=== PATIENT | male | born 2000 | race Two or more races ===

== ENCOUNTER 2019-09-24 02:30 | Emergency (ER) | payer MEDICAID, OTHER ==
[~2019-09-24] VITALS: Ht 157.5 cm; Wt 58.5 kg
[2019-09-24 03:20] VITALS: BP 149/92
[2019-09-24] MEDS ORDERED: BACITRACIN TOP OINT 1 UD PKG TOP ONE ×2 (03:30→05:00)
[2019-09-24] MEDS ORDERED: LIDOCAINE 1% (LOCAL ANESTH.) PF 5ml SDV ID ONE (03:30)
[2019-09-24] MEDS ORDERED: LIDOCAINE W/ EPINEPHRINE 1% 20ML VIAL ID ONE (03:30)
[2019-09-24] MEDS ORDERED: cefTRIAXone SOD 1,000 MG VL IM ONE (05:00)
== END 2019-09-24 05:18 | disposition home or self-care (01) ==
LOC: ER 02:30
DX: S61.412A Laceration without foreign body of left hand, initial encounter (principal); W26.8XXA Contact with other sharp object(s), not elsewhere classified, initial encounter; Y93.89 Activity, other specified; Y92.89 Other specified places as the place of occurrence of the external cause; Y99.8 Other external cause status
CPT/HCPCS: 12002; 73090; 73100; 73130; 96372; 99284; J0696

== ENCOUNTER 2019-10-02 14:16 | Emergency (ER) | payer MEDICAID ==
[~2019-10-02] VITALS: Ht 157.5 cm; Wt 59.4 kg
[2019-10-02 14:28] VITALS: BP 130/81
== END 2019-10-02 15:01 | disposition home or self-care (01) ==
LOC: ER 14:16
DX: S61.412D Laceration without foreign body of left hand, subsequent encounter (principal); X58.XXXD Exposure to other specified factors, subsequent encounter

== ENCOUNTER 2020-04-01 13:53 | Emergency (ER) | payer MEDICAID ==
[~2020-04-01] VITALS: Ht 160 cm; Wt 61.2 kg
[2020-04-01 16:07] VITALS: BP 138/83
== END 2020-04-01 15:18 | disposition left against medical advice (07) ==
LOC: ER 13:53
DX: J34.89 Other specified disorders of nose and nasal sinuses (principal); Z53.21 Procedure and treatment not carried out due to patient leaving prior to being seen by health care provider

== ENCOUNTER 2021-07-14 11:36 | Emergency (ER) | payer MEDICAID ==
[~2021-07-14] VITALS: Ht 160 cm; Wt 61.2 kg
[2021-07-14 14:22] VITALS: BP 133/79
== END 2021-07-14 14:36 | disposition home or self-care (01) ==
LOC: ER 11:36
DX: S50.811A Abrasion of right forearm, initial encounter (principal); V87.8XXA Person injured in other specified noncollision transport accidents involving motor vehicle (traffic), initial encounter; Y93.89 Activity, other specified; Y92.89 Other specified places as the place of occurrence of the external cause; Y99.8 Other external cause status

== ENCOUNTER 2022-03-05 08:04 | Emergency (ER) | payer MEDICAID ==
[~2022-03-05] VITALS: Ht 160 cm; Wt 65.0 kg
[2022-03-05 08:15] VITALS: BP 164/107
[2022-03-05] MEDS ORDERED: IBU600T PO (10:05)
[2022-03-05] MEDS ORDERED: IBUPROFEN 800 MG TAB PO ONE (10:15)
== END 2022-03-05 10:13 | disposition home or self-care (01) ==
LOC: ER 08:04
DX: S02.2XXA Fracture of nasal bones, initial encounter for closed fracture (principal); Y04.8XXA Assault by other bodily force, initial encounter; Y93.89 Activity, other specified; Y92.89 Other specified places as the place of occurrence of the external cause; Y99.8 Other external cause status
CPT/HCPCS: 70450; 70486; 72125

== ENCOUNTER 2023-02-10 21:46 | Emergency (ER) | payer MEDICAID ==
[~2023-02-10] VITALS: Ht 160 cm; Wt 81.8 kg
[~2023-02-10 21:46] MED LIST: IBU600T PO
[2023-02-10 22:07] VITALS: BP 146/91; RESP 20; O2SAT 95
[2023-02-10 22:26] LABS: Basophils # (auto) 0.1 10 ^3/uL (0-0.2); Basophils % (auto) 0.5 % (0.0-2.0); Eosinophils # (auto) 0.3 10 ^3/uL (0-0.8); Eosinophils % (auto) 2.7 % (0.0-7.0); Hematocrit 44.2 % (41.0-53.0); Hemoglobin 15.1 g/dL (13.5-17.5); Lymphocytes # (auto) 3.5 10 ^3/uL (0.4-5.4); Mean Corpuscular Hemoglobin 28.3 pg (28.0-32.0); Mean Corpuscular Hgb Conc. 34.1 g/dL (32.0-36.0); Monocytes # (auto) 0.8 10 ^3/uL (0-1.3); Monocytes % (auto) 8.8 % (0.0-12.0); Neutrophils # (auto) 4.7 10 ^3/uL (1.6-8.6); Nucleated Red Blood Cells % 0.1 %; Red Blood Cells 5.32 10^6/uL (4.5-5.90); Red Cell Distribution Width 13.1 % (11.8-14.3); White Blood Cell 9.3 10^3/uL (4.4-10.8)
[2023-02-10 22:53] LABS: Alanine Aminotransferase 210 U/L (7-40); Alkaline Phosphatase 102 U/L (46-116); Anion Gap 11 (5-15); Aspartate Aminotransferase 114 U/L (13-40); BUN/Creatinine Ratio 8.9 (10.0-20.0); Blood Urea Nitrogen 9 mg/dL (9-23); Calcium 9.3 mg/dL (8.7-10.4); Carbon Dioxide 23 mmol/L (20-30); Chloride 105 mmol/L (98-107); Glucose 137 mg/dL (74-106); Magnesium 2.1 mg/dL (1.6-2.6); Potassium 3.2 mmol/L (3.5-5.1); Sodium 139 mmol/L (136-145)
[2023-02-10 22:54] LABS: Bilirubin, Total 0.4 mg/dL (0.2-1.0); Total Protein 7.6 g/dL (5.7-8.2)
[2023-02-10 23:09] VITALS: PULSE 113
== END 2023-02-11 01:59 | disposition left against medical advice (07) ==
LOC: ER 21:50
DX: R00.2 Palpitations (principal); F41.9 Anxiety disorder, unspecified; Z53.21 Procedure and treatment not carried out due to patient leaving prior to being seen by health care provider; Z79.899 Other long term (current) drug therapy
CPT/HCPCS: 36415; 71045; 80053; 83735; 84484; 85025; 93005